=== PATIENT | male | born 1960 | race Asian ===

== ENCOUNTER 2019-12-09 07:32 | Day surgery (SDC) | payer OTHER, SELFPAY ==
[~2019-12-09] VITALS: Ht 182.9 cm; Wt 70.0 kg
[2019-12-09] MEDS ORDERED: fentaNYL citrate 0.05 MG/ML VIAL ONE (08:42)
[2019-12-09] MEDS ORDERED: MIDAZOLAM 5 MG/5 ML VIAL ONE (08:42)
[2019-12-09] MEDS ORDERED: LIDOCAINE 2% 100 MG/5 ML UJET TP ONE (08:43)
[2019-12-09] MEDS ORDERED: diphenhydrAMINE 50 MG/ML VIAL ONE (08:43)
[2019-12-09] MEDS ORDERED: fentaNYL citrate 0.05 MG/ML VIAL IVP ONE (13:35)
[2019-12-09] MEDS ORDERED: MIDAZOLAM 2 MG/2 ML VIAL IVP ONE (13:35)
== END 2019-12-09 10:10 | disposition home or self-care (01) ==
LOC: MDS 07:32 → MMU 07:33 → MDS 10:10
PROVIDERS: ATTEND Internal Medicine Gastroenterology
DX: Z12.11 Encounter for screening for malignant neoplasm of colon (principal); K63.5 Polyp of colon; F17.210 Nicotine dependence, cigarettes, uncomplicated; I10 Essential (primary) hypertension; Z79.899 Other long term (current) drug therapy; Z20.828 Contact with and (suspected) exposure to other viral communicable diseases
CPT/HCPCS: 45380; 45385; J2250; J3010; U0003; J1200